=== PATIENT | female | born 1970 | race Caucasian/White ===

== ENCOUNTER 2017-02-10 21:26 | Emergency (ER) | payer OTHER ==
[~2017-02-10] VITALS: Ht 162.6 cm; Wt 57.4 kg
[2017-02-10] MEDS ORDERED: ESCI5TAB7 PO (22:20)
[2017-02-10] MEDS ORDERED: MORPHINE SULFATE 4 MG/ML, 1ML ONE (22:22)
[2017-02-10] MEDS ORDERED: ONDANSETRON 2MG/ML, 2ML ONE ×2 (22:22→22:54)
[2017-02-10] MEDS ORDERED: FAMOTIDINE 20 MG/2 ML ONE (22:22)
[2017-02-10] MEDS ORDERED: MAALOX/HYOSCYAMINE/LIDOCAINE 45 ML BTL PO ONE (22:30)
[2017-02-10] MEDS ORDERED: SODIUM CHLORIDE FLUSH 10ML SYR IVF ONE (22:30)
[2017-02-10] MEDS ORDERED: SODIUM CHLORIDE 0.9% 1,000ML IVBOLUS ONE (22:30)
[2017-02-10] MEDS ORDERED: MORPHINE SULFATE 4 MG/ML, 1ML IVPush PRN (22:30)
[2017-02-10] MEDS ORDERED: FAMOTIDINE 20 MG/2 ML IVP ONE (22:30)
[2017-02-10] MEDS ORDERED: ONDANSETRON 2MG/ML, 2ML IVPush ONE (22:30)
[2017-02-10 22:49] LABS: HEMATOCRIT 39.4 % (34.6-47.8); HEMOGLOBIN 13.3 g/dL (11.7-16.4); WHITE BLOOD COUNT 19.9 x10^3/uL (3.4-10)
[2017-02-10 22:57] VITALS: BP 111/68
[2017-02-10 22:59] LABS: BLOOD UREA NITROGEN 25 mg/dL (7-18)
[2017-02-10 23:05] LABS: ASPARTATE AMINO TRANSFERASE 20 U/L (15-37)
[2017-02-10 23:21] LABS: DIFF TOTAL CELLS COUNTED 100 CELL DIFF
[2017-02-10 23:22] LABS: VERIFY COUNTS? YES
[2017-02-11] MEDS ORDERED: MAALOX/HYOSCYAMINE/LIDOCAINE 45 ML BTL ONE (00:08)
== END 2017-02-11 00:22 | disposition home or self-care (01) ==
LOC: ED 02-11 00:16
DX: K52.9 Noninfective gastroenteritis and colitis, unspecified (principal)
CPT/HCPCS: 36415; 76700; 80053; 83690; 84703; 85025; 96361; 96374; 96375; 99285; J2405; J7030; S0028